=== PATIENT | female | born 1965 | race Two or more races ===

== ENCOUNTER → 2018-01-13 | Outpatient (CLI) | payer BC ==
[~2018-01-13] MED LIST: CIPR500T87 PO; GEMF600T4 PO; LEVO125T5 PO; METR500T PO; OXYC-302 PO
== END | disposition home or self-care (01) ==
LOC: CFH 15:15
PROVIDERS: ATTEND Obstetrics & Gynecology
DX: Z12.31 Encounter for screening mammogram for malignant neoplasm of breast (principal)
CPT/HCPCS: 77067